=== PATIENT | male | born 1985 | race Caucasian/White ===

== ENCOUNTER 2019-06-30 14:45 | Emergency (ER) | payer OTHER ==
[~2019-06-30] VITALS: Ht 172.7 cm; Wt 72.6 kg
[2019-06-30 14:58] VITALS: BP_SYST 140
--- NOTE | 2019-06-30 15:00 | NUR ---
MD VENEGAS AT BEDSIDE EXAMING PT.
--- NOTE | 2019-06-30 15:03 | NUR ---
Patient triaged and placed in waiting room. VSS and patient appears in no acute distress at this time. Accompanied by friend, awaiting available bed, and MD notified of need for MSE.
--- NOTE | 2019-06-30 15:13 | NUR ---
Patient to ER bed 06 for evaluation. Side rails up. Report given to Bo CRISTINA.
[2019-06-30] MEDS ORDERED: LIDOCAINE 1% 10 MG/ML, 20 ML MDV IM ONE (15:30)
[2019-06-30 16:19] VITALS: BP_SYST 140
--- NOTE | 2019-06-30 16:20 | NUR ---
MD VENEGAS HAS TAKEN OUT ALL SPLINTERS VIA SCALPEL AND THEN SUTURING. RN THEN CLEANSED THE HAND WELL AND COVERED WITH STERILE BANDAGE. PT IS HAPPY AND WILL BE DC HOME
--- NOTE | 2019-06-30 16:21 | NUR ---
Patient given written and verbal discharge instructions and verbalizes understanding. ER MD discussed with patient the results and treatment provided. Patient in stable condition. ID arm band removed. Rx of KEFLEX given. Patient educated on pain management and to follow up with PMD. Pain Scale . Opportunity for questions provided and answered. Medication side effect fact sheet provided.
== END 2019-06-30 16:19 | disposition home or self-care (01) ==
LOC: SED 14:45
DX: S60.457A Superficial foreign body of left little finger, initial encounter (principal); S60.456A Superficial foreign body of right little finger, initial encounter; W45.8XXA Other foreign body or object entering through skin, initial encounter; Y93.55 Activity, bike riding; Y92.828 Other wilderness area as the place of occurrence of the external cause; Y99.8 Other external cause status
CPT/HCPCS: 10120; 73140; 99284; J2001